=== PATIENT | male | born 1995 | race Caucasian/White ===

== ENCOUNTER 2016-10-17 11:24 | Emergency (ER) | payer MEDICAID ==
[~2016-10-17] VITALS: Ht 180.3 cm; Wt 80.3 kg
[~2016-10-17 11:24] MED LIST: AMOXICILLIN AND1 TA3 PO; COLACE100 MG PO; LAC PO; NORCO1 TA2 PO
[2016-10-17 12:22] LABS: urine erythrocyte NEGATIVE (NEGATIVE)
[2016-10-17 12:28] LABS: microscopic required? YES
[2016-10-17 12:55] VITALS: BP 124/74
== END 2016-10-17 12:55 | disposition home or self-care (01) ==
LOC: ED 11:24
PROVIDERS: Emergency Medicine
DX: R10.30 Lower abdominal pain, unspecified (principal); Z90.49 Acquired absence of other specified parts of digestive tract; F12.929 Cannabis use, unspecified with intoxication, unspecified; F17.200 Nicotine dependence, unspecified, uncomplicated
CPT/HCPCS: 87491; 87591; J0696; J1885; Q0092

== ENCOUNTER 2017-01-16 17:07 | Inpatient (IN) | payer MEDICAID ==
[~2017-01-16] VITALS: Ht 180.3 cm; Wt 77.6 kg
--- NOTE | 2017-01-16 17:30 | NUR ---
DR ORTEGA AT BEDSIDE FOR MSE.
--- NOTE | 2017-01-16 17:56 | NUR ---
PT AMBULATED SELF TO RM WITH EVEN AND STEADY GAIT. NO DISTRESS NOTED AT THIS TIME. MOM AT BEDSIDE. PT C/O PALPITATIONS THAT BEGAN LAST NIGHT. PT STATES CHEST PAIN AND DESCRIBES IT A BURNING SENSATION. PT DENIES AGGREVIATING FACTORS OR PAIN RADIATING TO OTHER PARTS OF BODY. PT ALERT AND AWAKE, APPEARS TO BE NERVOUS. PT ADMITS METH USE THIS PAST WEEKEND. PT IN BED WITH SIDERAILS UP FOR SAFETY PRECAUTIONS, CALL LIGHT PLACED WITHIN REACH, COMFORT MEASURES IN PLACE.
[2017-01-16 17:58] LABS: BASOPHIL % 0.1 % (0-2); PLATELET COUNT 263 x10^3mcL (130-400); RED CELL DISTRIBUTION WIDTH 13.3 % (11.5-14.5)
[2017-01-16 18:13] LABS: CALCIUM 9.3 mg/dL (8.5-10.1); CARBON DIOXIDE 30.4 mmol/L (21-32); CHLORIDE SERUM 100 mmol/L (98-107); CREATININE SERUM 1.3 mg/dL (0.7-1.3); GFR1 > 60 mL/min; GLUCOSE SERUM 113 mg/dL (74-106); POTASSIUM SERUM 3.4 mmol/L (3.5-5.1); SODIUM SERUM 141 mmol/L (136-145)
[2017-01-16 18:23] LABS: UA SPECIFIC GRAVITY >=1.030 (1.005-1.035); microscopic required? YES; urine erythrocyte NEGATIVE (NEGATIVE)
[2017-01-16 18:25] LABS: ALKALINE PHOSPHATASE 73 U/L (46-116); ALT/SGPT 19 U/L (16-63); AST/SGOT 13 U/L (15-37); BILIRUBIN TOTAL 0.35 mg/dL (0.20-1.00); C REACTIVE PROTEIN 7.6 mg/dL (<=0.9); TOTAL PROTEIN, SERUM 8.9 g/dL (6.4-8.2)
[2017-01-16 18:29] LABS: T3 TOTAL 0.66 ng/mL
[2017-01-16 18:32] LABS: CK-MB < 0.5 ng/mL (0-3.6); CREATINE KINASE 58 U/L (39-308)
[2017-01-16 18:36] LABS: AMPHETAMINE QUAL UR POSITIVE (NEG <=1000)
--- NOTE | 2017-01-16 18:45 | NUR ---
DR ORTEGA AT BEDSIDE DISCUSSING PLAN OF CARE
--- NOTE | 2017-01-16 18:47 | NUR ---
SLEEPING, AROUSABLE, NO SIGNS OF DISTRESS. SINUS TACH ON HEALTH TECHNICAL WRITER. MOTHER AT BEDSIDE.
[2017-01-16 19:02] LABS: FREE T4 0.88 ng/dL (0.76-1.46); FREE THYROXINE INDEX 1.9 ug/dL (1.4-4.5); T4(THYROXINE) 5.1 ug/dL (4.7-13.3)
--- NOTE | 2017-01-16 19:07 | NUR ---
MOM, AT BEDSIDE, CONFIRMS PT DOES NOT CURRENTLY TAKE ANY MEDS AT HOME.
--- NOTE | 2017-01-16 19:15 | NUR ---
CHANGE OF SHIFT REPORT GIVEN TO GILMER MILLARD TO CONTINUE CARE.
--- NOTE | 2017-01-16 19:23 | NUR ---
PT RESTING WITH EYES CLOSED. PT ON NUCLEAR SECURITY OFFICER. MOM AT THE BEDSIDE.WILL CONTINUE TO MONITOR FOR SAFETY
[2017-01-16 19:37] LABS: CHOLESTEROL/HDL RATIO 3.4; MAGNESIUM 1.9 mg/dL (1.8-2.4); PHOSPHOROUS 2.9 mg/dL (2.5-4.9)
--- NOTE | 2017-01-16 19:47 | NUR ---
REPORT GIVEN TO NANETTE SCHERER
--- NOTE | 2017-01-16 20:23 | NUR ---
PT TRANSPORTED TO [facility]IA [facility], ON [address] AND [employer] SAL[employer]NAGER BY VERONA SCHERER AND EMT. PT IN [facility].
[2017-01-16 20:26] VITALS: BP 124/77
[2017-01-16 20:44] VITALS: BP 124/77
--- NOTE | 2017-01-16 20:51 | NUR ---
REC'D AAOX3, LETHARGIC. SPEECH CLEAR. DENIES DIZZINESS AND H/A. C/O CHEST PAIN 02/17. DR. GODFREY AT THE BEDSIDE. FAMILY AT THE BEDSIDE. IV SITE WNL. ATTACHED TELE 18, NOTED ST. ORIENTED TO ROOM AND SURROUNDINGS. CALL LIGHT WITHIN REACH, PROVIDED REPORT TO NANETTE SCHERER FOR CONTINUITY OF CARE.
--- NOTE | 2017-01-16 21:20 | NUR ---
PT RESTING WITH EYES CLOSED. AROUSABLE WITH TACTILE STIMULI. ON TELE # 18 SINUS RHYTHYM ON THE MONITOR. IV INTACT ON THE RAC INFUSING WITH NS AT 120 ML/HR. MADE PT COMFORTABLE. PLACED CALL LIGHT WITH IN REACH. WILL CONTINUE TO MONITOR.
[2017-01-16 22:13] LABS: ERYTHROCYTE SED RATE 6 mm/hr (0-15)
--- NOTE | 2017-01-17 01:31 | NUR ---
PT WOKE UP YELLING FOR HELP, C/O PAIN FROM THE IV. PT THREW TO THE FLOOR HIS TELE MONITOR, HOSPITAL PHONE AND CALL LIGHT. NOTICED THAT THE PATIENTS IV FLUIDS STOPPED AND ONLY THE K RIDER WAS RUNNING. PT WANTED TO BE HEPLOCKED. PT WANTED TO GO HOME. PT WAS FALLING ASLEEP. DR. MENDEZ AND DR. GODFREY AWARE AND WAS AT BEDSIDE. ENCOURAGED THE PT TO SPEND THE NIGHT AND SLEEP IT OF. PT AGREED TO STAY. WILL CONTINUE TO MONITOR.
[2017-01-17 05:28] VITALS: BP 106/52
--- NOTE | 2017-01-17 06:39 | NUR ---
PT RESTING WITH EYES CLOSED. EASILY AROUSABLE WITH VERBAL STIMULI. PT STILL ON HEPLOCK. MADE PT COMFORTABLE. WILL ENDORSE TO THE AM NURSE ACCORDINGLY.
--- NOTE | 2017-01-17 07:05 | NUR ---
PT SLEEPING. NO DISTRESS NOTED. IV ACCESS TO RAC #20. BED IN LOWEST POSITION, CALL LIGHT WITHIN REACH.
[2017-01-17 08:09] LABS: BASOPHIL % 0.6 % (0-2); PLATELET COUNT 236 x10^3mcL (130-400); RED CELL DISTRIBUTION WIDTH 13.1 % (11.5-14.5)
[2017-01-17 08:29] LABS: CALCIUM 8.2 mg/dL (8.5-10.1); CARBON DIOXIDE 24.2 mmol/L (21-32); CHLORIDE SERUM 105 mmol/L (98-107); CREATININE SERUM 0.9 mg/dL (0.7-1.3); GFR1 > 60 mL/min; GLUCOSE SERUM 78 mg/dL (74-106); POTASSIUM SERUM 3.8 mmol/L (3.5-5.1); SODIUM SERUM 141 mmol/L (136-145)
[2017-01-17 08:46] VITALS: BP 124/73
--- NOTE | 2017-01-17 10:00 | NUR ---
PT IN BED. HIGH FOWLERS. DENIES CHEST PAIN AT MOMENT. PT VERBALIZED TO ADVICE IF PAIN OCCURS. FAMILY AT BEDSIDE, CALL LIGHT WITHIN REACH.
--- NOTE | 2017-01-17 11:00 | NUR ---
PT STATED THE HE WANTED TO LEAVE. PT USING OBSCENE LANGUAGE. TO STAFF AND MOTHER. PT REPEATS HE WANTS TO LEAVE. DR. CALVIN SPOKE TO PT AND EXPLAINED RISKS OF DECISION. IV REMOVED, CATHETER INTACT. TELEBOX REMOVED. SECURITY ESCORTED PATIENT OUT OF UNIT.
[2017-01-17 13:40] VITALS: BP 160/68
== END 2017-01-17 11:15 | disposition left against medical advice (07) | DRG 770 ==
LOC: ED 17:07 → DU 19:04
PROVIDERS: Specialist; ADMIT Family Medicine
DX: F15.10 Other stimulant abuse, uncomplicated (principal); N17.0 Acute kidney failure with tubular necrosis; G92 Toxic encephalopathy; D75.1 Secondary polycythemia; E86.0 Dehydration; F12.10 Cannabis abuse, uncomplicated; M94.0 Chondrocostal junction syndrome [Tietze]; E87.6 Hypokalemia; R00.0 Tachycardia, unspecified; Z68.24 Body mass index [BMI] 24.0-24.9, adult; F17.210 Nicotine dependence, cigarettes, uncomplicated
CPT/HCPCS: 83880; 84439; J1885; J2060; J3480; J7030